=== PATIENT | female | born 1965 | race Hispanic/Latino ===

== ENCOUNTER 2019-04-14 10:14 | Emergency (ER) | payer OTHER, SELFPAY ==
[2019-04-14] MEDS ORDERED: NAPROXEN 500 MG TABLET ONE (10:24)
== END 2019-04-14 10:31 | disposition home or self-care (01) ==
LOC: EDH 10:14
DX: S16.1XXA Strain of muscle, fascia and tendon at neck level, initial encounter (principal); Z90.710 Acquired absence of both cervix and uterus; V79.49XA Driver of bus injured in collision with other motor vehicles in traffic accident, initial encounter; Y93.89 Activity, other specified; Y92.89 Other specified places as the place of occurrence of the external cause; Y99.8 Other external cause status